=== PATIENT | female | born 2000 | race Caucasian/White ===

== ENCOUNTER 2018-10-29 16:52 | Emergency (ER) | payer SELFPAY ==
[2018-10-29] MEDS ORDERED: Sodium Chloride 0.9% 2.5 ML Syringe FLUSH PRN (17:08)
[2018-10-29] MEDS ORDERED: Sodium Chloride 0.9% 10 ML Syringe FLUSH PRN (17:08)
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
[2018-10-29 18:06] LABS: BLOOD UREA NITROGEN,BUN 9 mg/dL (7.0-18.0); CARBON DIOXIDE,CO2 28.3 mmol/L (21.0-32.0); CHLORIDE,CL 103 mmol/L (98-107); GLUCOSE RANDOM 95 mg/dL (74-106); POTASSIUM,K 3.7 mmol/L (3.5-5.1); SODIUM,NA 142 mmol/L (136-145)
--- NOTE | 2018-10-29 18:42 | CT ---
INDICATION: Seizure TECHNIQUE: CT head without contrast. COMPARISON: None. FINDINGS: CSF spaces: Within normal limits for age. Brain parenchyma: The worthy-white differentiation is normal. No sign of mass, hemorrhage, or midline shift. Skull base and calvarium: The visualized paranasal sinuses and mastoid air cells demonstrate no acute or significant findings. The visualized orbits are grossly unremarkable. No skull fractures. IMPRESSION: Unremarkable noncontrast head CT. Please note that all CT scans at this facility use dose modulation, iterative reconstruction, and/or weight-based dosing when appropriate to reduce radiation dose to as low as reasonably achievable. Dictated by Shelton Dougherty MD @ Oct 29 2018 6:38PM Signed by Dr. Shelton Dougherty @ Oct 29 2018 6:41PM
== END 2018-10-29 18:56 | disposition home or self-care (01) ==
LOC: MW.ED 16:52
DX: R56.9 Unspecified convulsions (principal)
CPT/HCPCS: 70450; 70450-26; 80053; 80305-QW; 81025; 82962; 85025; 99285-25